=== PATIENT | female | born 1990 | race African-American/Black ===

== ENCOUNTER 2017-11-23 14:24 | Emergency (ER) | payer OTHER ==
[~2017-11-23] VITALS: Ht 160 cm; Wt 81.7 kg
[~2017-11-23 14:24] MED LIST: FLAGYL500 MG PO; NOHOMEMEDICATIONS; VITAFOL-OB+DHA1 EACH PO
[2017-11-23 15:06] LABS: URINE BILIRUBIN NEGATIVE (Negative); URINE BLOOD NEGATIVE (Negative); URINE CLARITY CLEAR; URINE COLOR YELLOW; URINE GLUCOSE-RANDOM* NEGATIVE (Negative); URINE KETONES TRACE (Negative); URINE LEUKOCYTES NEGATIVE (Negative); URINE NITRITE NEGATIVE (Negative); URINE PROTEIN (DIPSTICK) NEGATIVE (Negative); URINE SPECIFIC GRAVITY 1.015 (1.005-1.035)
[2017-11-23 15:20] LABS: ABSOLUTE NEUTROPHILS 2.8 thou/uL (1.4-8.2); BASOPHILS 0.7 % (0.0-2.0); EOSINOPHILS 1.7 % (0.0-3.0); HEMATOCRIT 37.7 % (37.0-47.0); HEMOGLOBIN 13.6 gm/dL (12.0-15.0); LYMPHOCYTES 45.8 % (24.0-44.0); MCH 29.6 pg (26.0-34.0); MCHC 36.1 g/dL (28.0-37.0); MONOCYTES 7.6 % (1.0-8.0); PLATELET COUNT 284 thou/uL (150-400); POLYS 44.2 % (36.0-66.0); RBC 4.59 mil/uL (4.20-5.00); WBC 6.4 thou/uL (4.0-11.0)
[2017-11-23 15:31] LABS: CREATININE 0.8 mg/dL (0.6-1.0); POTASSIUM 3.6 mmol/L (3.5-5.1)
[2017-11-23 15:37] LABS: ALBUMIN 3.6 g/dL (3.4-5.0); TOTAL BILIRUBIN 0.3 mg/dL (<0.1-1.0); TOTAL PROTEIN 7.3 g/dL (6.4-8.2)
== END 2017-11-23 17:40 | disposition home or self-care (01) ==
LOC: ER 14:24
PROVIDERS: Emergency Medicine
DX: O26.891 Other specified pregnancy related conditions, first trimester (principal); Z3A.00 Weeks of gestation of pregnancy not specified; R10.2 Pelvic and perineal pain

== ENCOUNTER 2017-12-03 12:25 | Emergency (ER) | payer OTHER ==
[~2017-12-03] VITALS: Ht 160 cm; Wt 81.7 kg
[2017-12-03] MEDS ORDERED: PRENATAL COMPL1 EACH PO (12:37)
[2017-12-03 13:06] LABS: ABSOLUTE NEUTROPHILS 2.7 thou/uL (1.4-8.2); BASOPHILS 0.9 % (0.0-2.0); EOSINOPHILS 1.5 % (0.0-3.0); HEMATOCRIT 37.7 % (37.0-47.0); HEMOGLOBIN 13.6 gm/dL (12.0-15.0); LYMPHOCYTES 43.5 % (24.0-44.0); MCH 29.5 pg (26.0-34.0); MONOCYTES 6.4 % (1.0-8.0); PLATELET COUNT 263 thou/uL (150-400); POLYS 47.7 % (36.0-66.0); RDW 15.6 % (10.5-14.5); WBC 5.6 thou/uL (4.0-11.0)
[2017-12-03] MEDS ORDERED: ZOFRAN ODT4 MG PO (15:08)
== END 2017-12-03 15:36 | disposition home or self-care (01) ==
LOC: ER 12:25
PROVIDERS: Nurse Practitioner
DX: O26.891 Other specified pregnancy related conditions, first trimester (principal); R11.0 Nausea; Z3A.01 Less than 8 weeks gestation of pregnancy

== ENCOUNTER 2017-12-18 16:01 | Emergency (ER) | payer OTHER ==
[~2017-12-18] VITALS: Ht 160 cm; Wt 81.7 kg
[~2017-12-18 16:01] MED LIST changes: +PRENATAL COMPL1 EACH PO; +ZOFRAN ODT4 MG PO
[2017-12-18 16:25] LABS: ABSOLUTE NEUTROPHILS 5.5 thou/uL (1.4-8.2); BASOPHILS 0.6 % (0.0-2.0); EOSINOPHILS 0.3 % (0.0-3.0); HEMATOCRIT 39.3 % (37.0-47.0); HEMOGLOBIN 13.8 gm/dL (12.0-15.0); LYMPHOCYTES 32.8 % (24.0-44.0); MCH 29.4 pg (26.0-34.0); MCHC 35.2 g/dL (28.0-37.0); MCV 83.6 fL (80.0-100.0); MONOCYTES 4.8 % (1.0-8.0); PLATELET COUNT 302 thou/uL (150-400); POLYS 61.5 % (36.0-66.0); RBC 4.71 mil/uL (4.20-5.00); RDW 15.9 % (10.5-14.5); WBC 8.9 thou/uL (4.0-11.0)
[2017-12-18 16:33] LABS: ANION GAP 8 mmol/L (7-16); BUN 8 mg/dL (7-18); CALCIUM 9.2 mg/dL (8.5-10.1); CHLORIDE 103 mmol/L (98-107); CO2 27 mmol/L (21-32); GLUCOSE 125 mg/dL (74-106); POTASSIUM 3.1 mmol/L (3.5-5.1); SODIUM 138 mmol/L (136-145)
[2017-12-18 16:39] LABS: ALBUMIN 3.7 g/dL (3.4-5.0); DIRECT BILIRUBIN < 0.1 mg/dL (<0.1-0.3); SGOT 16 U/L (15-37); SGPT 20 U/L (30-65); TOTAL BILIRUBIN 0.3 mg/dL (<0.1-1.0); TOTAL PROTEIN 7.3 g/dL (6.4-8.2)
[2017-12-18 16:47] LABS: URINE BILIRUBIN NEGATIVE (Negative); URINE BLOOD 2+ (Negative); URINE CLARITY CLEAR; URINE COLOR YELLOW; URINE GLUCOSE-RANDOM* NEGATIVE (Negative); URINE KETONES TRACE (Negative); URINE LEUKOCYTES NEGATIVE (Negative); URINE NITRITE NEGATIVE (Negative); URINE PROTEIN (DIPSTICK) NEGATIVE (Negative); URINE SPECIFIC GRAVITY 1.015 (1.005-1.035); URINE UROBILINOGEN 0.2 E.U./dl (0.2-1.0)
[2017-12-18 16:51] LABS: SQUAMOUS 4-10 Moderate /LPF (0-3); URINE RBC 0-2 Rare /HPF (0-2); URINE WBC 0-5 Rare /HPF (0-5)
[2017-12-18 16:52] LABS: CASTS None Seen /LPF (None Seen); CRYSTALS None Seen /LPF (None Seen)
== END 2017-12-18 18:10 | disposition home or self-care (01) ==
LOC: ER 16:01
PROVIDERS: Emergency Medicine
DX: O20.0 Threatened abortion (principal); N76.0 Acute vaginitis; E87.6 Hypokalemia; Z3A.01 Less than 8 weeks gestation of pregnancy

== ENCOUNTER 2018-02-17 07:20 | Emergency (ER) | payer OTHER ==
[~2018-02-17] VITALS: Ht 160 cm; Wt 83.9 kg
[2018-02-17 07:26] VITALS: BP 114/69
[2018-02-17 07:52] LABS: URINE BILIRUBIN NEGATIVE (Negative); URINE BLOOD NEGATIVE (Negative); URINE CLARITY CLEAR; URINE COLOR YELLOW; URINE GLUCOSE-RANDOM* NEGATIVE (Negative); URINE KETONES NEGATIVE (Negative); URINE NITRITE-REFLEX NEGATIVE (Negative); URINE PROTEIN (DIPSTICK) NEGATIVE (Negative); URINE UROBILINOGEN 0.2 E.U./dl (0.2-1.0)
[2018-02-17 07:53] LABS: URINE LEUKOCYTES-REFLEX 1+ (Negative)
[2018-02-17 08:12] LABS: CASTS None Seen /LPF (None Seen); CRYSTALS None Seen /LPF (None Seen); SQUAMOUS >10 Many /LPF (0-3)
[2018-02-17 08:13] LABS: URINE RBC None Seen /HPF (0-2); URINE WBC-REFLEX 6-15 Few /HPF (0-5)
[2018-02-17] MEDS ORDERED: KEFLEX500 M1 PO (08:29)
== END 2018-02-17 08:47 | disposition home or self-care (01) ==
LOC: ER 07:20
PROVIDERS: Emergency Medicine
DX: N39.0 Urinary tract infection, site not specified (principal)

== ENCOUNTER 2019-01-28 06:44 | Emergency (ER) | payer OTHER ==
[~2019-01-28] VITALS: Ht 160 cm; Wt 81.7 kg
[~2019-01-28 06:44] MED LIST changes: +KEFLEX500 M1 PO
[2019-01-28] MEDS ORDERED: EAR WAX REMOVAL15 ML OTIC (07:02)
[2019-01-28 07:23] VITALS: BP 118/81
== END 2019-01-28 07:20 | disposition home or self-care (01) ==
LOC: ER 06:44
DX: H61.22 Impacted cerumen, left ear (principal)

== ENCOUNTER 2019-06-06 19:22 | Emergency (ER) | payer OTHER ==
[~2019-06-06] VITALS: Ht 160 cm; Wt 81.7 kg
[~2019-06-06 19:22] MED LIST changes: +EAR WAX REMOVAL15 ML OTIC
[2019-06-06 19:39] VITALS: BP 127/73
[2019-06-06] MEDS ORDERED: CIPRODEX OTIC7.5 ML OTIC (21:46)
[2019-06-06] MEDS ORDERED: CLARITIN-D 121 EAC1 PO (21:46)
== END 2019-06-06 21:45 | disposition home or self-care (01) ==
LOC: ER 19:22
DX: H61.22 Impacted cerumen, left ear (principal); H60.92 Unspecified otitis externa, left ear

== ENCOUNTER 2020-08-07 17:41 | Emergency (ER) | payer OTHER ==
[~2020-08-07 17:41] MED LIST changes: +CIPRODEX OTIC7.5 ML OTIC; +CLARITIN-D 121 EAC1 PO
== END 2020-08-07 18:15 | disposition left against medical advice (07) ==
LOC: ER 17:41
DX: N39.0 Urinary tract infection, site not specified (principal); Z53.21 Procedure and treatment not carried out due to patient leaving prior to being seen by health care provider

== ENCOUNTER 2021-06-17 08:11 | Emergency (ER) | payer OTHER ==
[~2021-06-17] VITALS: Ht 160 cm; Wt 86.2 kg
[2021-06-17 08:31] LABS: URINE BLOOD 3+ (Negative); URINE CLARITY CLOUDY; URINE COLOR YELLOW; URINE GLUCOSE-RANDOM* NEGATIVE (Negative); URINE KETONES NEGATIVE (Negative); URINE LEUKOCYTES-REFLEX NEGATIVE (Negative); URINE NITRITE-REFLEX NEGATIVE (Negative); URINE PROTEIN (DIPSTICK) 1+ (Negative); URINE SPECIFIC GRAVITY 1.015 (1.005-1.035); URINE UROBILINOGEN 0.2 E.U./dl (0.2-1.0)
[2021-06-17 08:35] LABS: ICTOTEST (BILI CONFIRMATORY) Negative (Negative); URINE BILIRUBIN NEGATIVE (Negative)
[2021-06-17 08:36] LABS: BACTERIA-REFLEX 1-9 Few /HPF (None Seen); CASTS None Seen /LPF (None Seen); CRYSTALS None Seen /LPF (None Seen); SQUAMOUS 0-3 Few /LPF (0-3); URINE WBC-REFLEX None Seen /HPF (0-5)
[2021-06-17 08:45] LABS: ABSOLUTE NEUTROPHILS 2.8 thou/uL (1.4-8.2); HEMOGLOBIN 15.1 gm/dL (12.0-15.0); RDW 13.1 % (10.5-14.5); WBC 5.2 thou/uL (4.0-11.0)
[2021-06-17 08:47] LABS: BASOPHILS 1.1 % (0.0-2.0); EOSINOPHILS 2.9 % (0.0-3.0); HEMATOCRIT 42.5 % (37.0-47.0); LYMPHOCYTES 34.8 % (24.0-44.0); MCH 30.9 pg (26.0-34.0); MCHC 35.5 g/dL (28.0-37.0); MCV 87.1 fL (80.0-100.0); MONOCYTES 6.7 % (1.0-8.0); PLATELET COUNT 336 thou/uL (150-400); POLYS 54.5 % (36.0-66.0); RBC 4.88 mil/uL (4.20-5.00)
[2021-06-17 08:55] LABS: CALCIUM 9.3 mg/dL (8.5-10.1); CREATININE 0.9 mg/dL (0.6-1.0); POTASSIUM 3.9 mmol/L (3.5-5.1)
[2021-06-17 09:02] LABS: ALBUMIN 3.9 g/dL (3.4-5.0); TOTAL BILIRUBIN 0.5 mg/dL (0.2-1.0); TOTAL PROTEIN 7.8 g/dL (6.4-8.2)
[2021-06-17] MEDS ORDERED: PROVERA10 MG PO (11:07)
[2021-06-17 11:10] VITALS: BP 106/60
== END 2021-06-17 11:10 | disposition home or self-care (01) ==
LOC: ER 08:11
PROVIDERS: Emergency Medicine
DX: N93.8 Other specified abnormal uterine and vaginal bleeding (principal)

== ENCOUNTER 2021-07-11 13:22 | Inpatient (IN) | payer OTHER ==
[~2021-07-11] VITALS: Ht 160 cm; Wt 92.5 kg
[~2021-07-11 13:22] MED LIST changes: +PROVERA10 MG PO
[2021-07-11 13:24] VITALS: BP 135/77
[2021-07-11 13:55] LABS: ABSOLUTE NEUTROPHILS 2.4 thou/uL (1.4-8.2); BASOPHILS 0.5 % (0.0-2.0); HEMATOCRIT 40.4 % (37.0-47.0); HEMOGLOBIN 14.4 gm/dL (12.0-15.0); LYMPHOCYTES 23.5 % (24.0-44.0); MCH 30.8 pg (26.0-34.0); MCHC 35.7 g/dL (28.0-37.0); MCV 86.2 fL (80.0-100.0); MONOCYTES 7.8 % (1.0-8.0); PLATELET COUNT 180 thou/uL (150-400); POLYS 68.2 % (36.0-66.0); RBC 4.69 mil/uL (4.20-5.00); RDW 12.6 % (10.5-14.5); WBC 3.6 thou/uL (4.0-11.0)
[2021-07-11 14:12] LABS: CALCIUM 8.2 mg/dL (8.5-10.1); POTASSIUM 3.3 mmol/L (3.5-5.1)
[2021-07-11 14:19] LABS: ALBUMIN 3.3 g/dL (3.4-5.0); TOTAL BILIRUBIN 0.5 mg/dL (0.2-1.0); TOTAL PROTEIN 7.8 g/dL (6.4-8.2)
[2021-07-11 15:43] VITALS: BP 110/70
--- NOTE | 2021-07-11 15:48 | NUR ---
ATTEMPTED TO CALL REPORT
[2021-07-11 16:05] VITALS: BP 114/66
[2021-07-11 16:32] VITALS: BP 109/72
[2021-07-11 17:00] VITALS: BP 118/70
--- NOTE | 2021-07-11 19:28 | NUR ---
PT ADIMITTED FROM ER FOR COVID PNEUMONIA ABOUT 1700PM, PT IS A&OX4, PT IS ON O2 2L/MIN/NC, PT HAS IV ABX AT ER, PT'S SOB AND FEVER HAVE IMPROVED, PT HAS EATING HER DINNER, PT'S ADMITTED ASSESSMENT HAS DONE, ID HAS SEEING THIS PT, RN HAS REPORTED TO NEXT SHIFT TO FINISH NEW ORDER. PT DENIES PAIN BY THIS TIME.
[2021-07-11 19:55] VITALS: BP 117/73
[2021-07-12 04:25] VITALS: BP 94/61
[2021-07-12 04:56] LABS: INR 0.95; PROTIME 10.4 Seconds (10.5-12.1)
[2021-07-12 05:12] LABS: DIRECT BILIRUBIN < 0.1 mg/dL (<0.1-0.2); PHOSPHORUS 3.7 mg/dL (2.6-4.7)
--- NOTE | 2021-07-12 05:13 | NUR ---
C/O chest tightness and discomfort when coughing.O2 at 1L/NC with O2 sat in the upper 90's. [employer] notified and order placed. Toradol given for pain and guifenessin given for cough with good relief. She stated she slept well during the night and she is not coughing as much. Denies any pain this am.Cont. on enhanced precaution, afebrile.
[2021-07-12 05:14] LABS: ALBUMIN 2.9 g/dL (3.4-5.0); CALCIUM 7.4 mg/dL (8.5-10.1); CREATININE 0.8 mg/dL (0.6-1.0); POTASSIUM 4.1 mmol/L (3.5-5.1); TOTAL BILIRUBIN 0.3 mg/dL (0.2-1.0); TOTAL PROTEIN 6.7 g/dL (6.4-8.2)
[2021-07-12 05:33] LABS: ABSOLUTE NEUTROPHILS 1.3 thou/uL (1.4-8.2); BASOPHILS 0.4 % (0.0-2.0); HEMATOCRIT 37.4 % (37.0-47.0); HEMOGLOBIN 13.5 gm/dL (12.0-15.0); LYMPHOCYTES 39.6 % (24.0-44.0); MCH 31.2 pg (26.0-34.0); MCHC 36.2 g/dL (28.0-37.0); MCV 86.2 fL (80.0-100.0); MONOCYTES 9.4 % (1.0-8.0); PLATELET COUNT 185 thou/uL (150-400); POLYS 50.6 % (36.0-66.0); RBC 4.34 mil/uL (4.20-5.00); RDW 13.1 % (10.5-14.5); WBC 2.6 thou/uL (4.0-11.0)
[2021-07-12 08:08] VITALS: BP 11/73
[2021-07-12 11:10] VITALS: BP 108/72
[2021-07-12 15:10] VITALS: BP 110/70
--- NOTE | 2021-07-12 16:28 | NUR ---
RN ASSUMED PT'S CARE AT 0700AM, PT IS A&OX4, PT IS ON O2 2L/MIN/NC, PT'S O2SAT AND VS ARE STABLE, PT'S FEVER AND SOB HAVE IMPROVED, PT CAN GET UP TO BSC WITHOUT ASSIST, BUT PT STILL HAS POOR EATING , PT DENIES PAIN BY THIS TIME.
[2021-07-12 19:28] VITALS: BP 102/67
[2021-07-13 02:50] VITALS: BP 109/69
[2021-07-13 04:24] LABS: ALBUMIN 2.9 g/dL (3.4-5.0); ANION GAP 8 mmol/L (7-16); BUN 9 mg/dL (7-18); CHLORIDE 103 mmol/L (98-107); CO2 29 mmol/L (21-32); CREATININE 0.9 mg/dL (0.6-1.0); DIRECT BILIRUBIN < 0.1 mg/dL (<0.1-0.2); GLUCOSE 96 mg/dL (74-106); PHOSPHORUS 2.6 mg/dL (2.6-4.7); POTASSIUM 4.1 mmol/L (3.5-5.1); SGOT 37 U/L (15-37); SGPT 30 U/L (14-59); SODIUM 140 mmol/L (136-145); TOTAL BILIRUBIN 0.3 mg/dL (0.2-1.0); TOTAL PROTEIN 7.1 g/dL (6.4-8.2)
--- NOTE | 2021-07-13 06:32 | NUR ---
PT MAKING SLOW PROGRESS TOWARDS GOALS. ON O2 AT 2L PER NC OVERNIGHT. AWOKE THIS AM C/O TROUBLE CATCHING HER BREATH. O2 SAT 94-95% ON 2L, INCREASED TO 4L FOR COMFORT. TEMP 101.1 ORALLY. NOTED WET BUT NONPRODCTIVE COUGH. PT REPORTS SHE WAS COUGHING WHEN WAKING UP. COUGHY SYRUP, TYLENOL AND TORADOL GIVEN FOR COMPLAINTS OF CHEST/RIB DISCOMFORT WHEN COUGHING. PT REPORTING IMPROVEMENT IN SX EARLY THIS AM.
[2021-07-13 07:58] VITALS: BP 106/69
[2021-07-13 08:26] LABS: ABSOLUTE NEUTROPHILS 3.3 thou/uL (1.4-8.2); BASOPHILS 0.3 % (0.0-2.0); HEMATOCRIT 38.7 % (37.0-47.0); HEMOGLOBIN 13.8 gm/dL (12.0-15.0); LYMPHOCYTES 31.5 % (24.0-44.0); MCH 31.4 pg (26.0-34.0); MCHC 35.7 g/dL (28.0-37.0); MCV 87.8 fL (80.0-100.0); MONOCYTES 3.8 % (1.0-8.0); PLATELET COUNT 215 thou/uL (150-400); POLYS 64.4 % (36.0-66.0); RBC 4.41 mil/uL (4.20-5.00); WBC 5.1 thou/uL (4.0-11.0)
[2021-07-13 15:11] LABS: URINE BILIRUBIN NEGATIVE (Negative); URINE BLOOD 3+ (Negative); URINE CLARITY CLEAR; URINE COLOR YELLOW; URINE GLUCOSE-RANDOM* NEGATIVE (Negative); URINE KETONES NEGATIVE (Negative); URINE LEUKOCYTES-REFLEX NEGATIVE (Negative); URINE NITRITE-REFLEX NEGATIVE (Negative); URINE PROTEIN (DIPSTICK) NEGATIVE (Negative); URINE SPECIFIC GRAVITY <= 1.005 (1.005-1.035); URINE UROBILINOGEN 0.2 E.U./dl (0.2-1.0)
[2021-07-13 15:15] VITALS: BP 105/68
[2021-07-13 15:22] LABS: CASTS None Seen /LPF (None Seen); SQUAMOUS 0-3 Few /LPF (0-3); URINE RBC 1-2 Rare /HPF (NONE SEEN); URINE WBC-REFLEX 0-5 Rare /HPF (0-5)
[2021-07-13 15:23] LABS: BACTERIA-REFLEX None Seen /HPF (None Seen); CRYSTALS None Seen /LPF (None Seen)
--- NOTE | 2021-07-13 18:35 | NUR ---
RN ASSUMED PT'S CARE AT 0700AM, PT IS A&OX4, PT IS ON O2 4L/NC/MIN, PT'S VS AND O2SAT ARE STABLE AT DAY SHIFT, PT GETS UP TO BSC WITHOUT ASSIST, BUT PT STILL HAS COUGHING , PT DENIES PAIN AND N/V AT DYA SHIFT.
[2021-07-13 20:33] VITALS: BP 109/64
[2021-07-14 00:04] VITALS: BP 112/60
[2021-07-14 04:00] VITALS: BP 101/58
[2021-07-14 05:26] LABS: ALBUMIN 2.7 g/dL (3.4-5.0); ANION GAP 8 mmol/L (7-16); BUN 7 mg/dL (7-18); CALCIUM 7.7 mg/dL (8.5-10.1); CHLORIDE 103 mmol/L (98-107); CO2 27 mmol/L (21-32); CREATININE 0.7 mg/dL (0.6-1.0); DIRECT BILIRUBIN < 0.1 mg/dL (<0.1-0.2); GLUCOSE 86 mg/dL (74-106); PHOSPHORUS 2.8 mg/dL (2.5-4.9); POTASSIUM 3.8 mmol/L (3.5-5.1); SGOT 30 U/L (15-37); SGPT 23 U/L (30-65); SODIUM 138 mmol/L (136-145); TOTAL BILIRUBIN 0.6 mg/dL (0.2-1.0); TOTAL PROTEIN 6.7 g/dL (6.4-8.2)
--- NOTE | 2021-07-14 06:44 | NUR ---
Patient making slow progress towards outcome goals. Low grade temperature 99 orally. Up adlib without difficulty. Denies pain. Oxygenation optimal with 3L/NC. Plenty of fluid intake and output. Blood tinged as patient is currently on her menstrual period.
[2021-07-14 09:06] LABS: HIV ANTIBODY Non Reactive (Non Reactive)
[2021-07-14 09:33] VITALS: BP 100/66
--- NOTE | 2021-07-14 15:56 | NUR ---
INITIAL ASSESSMENT: SW reviewed chart and spoke with nursing and attending physician. Pt was admitted from home due to COVID. Pt placed in Enhanced Isolation. Pt has not received a COVID vaccination. Pt has been febrile and is on 3L of O2. Pt is on IV abx and IV steroids. Pt has been started on Remdesivir. Discharge home is anticipated in 1-2 days. JAYLYN has placed several calls to pt's room. No answer. SW place call to pt's cell phone: [phone]. Voice message left. Per chart, pt is alert/orientated x 4. Pt lives at home and recently traveled to [place]. Pt does not have health insurance. [facility] to screen pt for Medicaid and/or financial assistance. SW to follow up with pt to discuss discharge planning.
[2021-07-14 16:15] VITALS: BP 103/63
--- NOTE | 2021-07-14 16:19 | NUR ---
RN ASSUMED PT'S CARE AT 0700AM, PT IS A&OX4, PT IS OFF O2 AND SHE IS ON ROOM AIR, PT 'S SOB AND COUGHING HAVE IMPROVED, PT IS CONTINUING IV ABX AND TREAT COVID MEDICATIONS, PT GETS UP TO BSC WITHOUT ASSIST, PT DENIES PAIN BY THIS TIME.
[2021-07-14 19:40] VITALS: BP 105/68
[2021-07-15 04:00] VITALS: BP 103/59
--- NOTE | 2021-07-15 05:51 | NUR ---
Pt. requested pain med for rib cage pain due to coughing. Tylenol given with good relief. Tolerating room air well with O2 sat in the low 90's. Encouraged use of IS and she slept in prone position as much as she can. Cont. on enhanced precaution , afebrile. making some progress towards care plan goals.
[2021-07-15 06:02] LABS: ALBUMIN 2.7 g/dL (3.4-5.0); CALCIUM 8.1 mg/dL (8.5-10.1); CREATININE 0.7 mg/dL (0.6-1.0); DIRECT BILIRUBIN 0.1 mg/dL (<0.1-0.2); PHOSPHORUS 3.2 mg/dL (2.5-4.9); POTASSIUM 4.1 mmol/L (3.5-5.1); TOTAL BILIRUBIN 0.4 mg/dL (0.2-1.0); TOTAL PROTEIN 6.9 g/dL (6.4-8.2)
[2021-07-15 07:38] VITALS: BP 99/64
[2021-07-15] MEDS ORDERED: VITAMIN D325 MC2 PO (10:52)
[2021-07-15] MEDS ORDERED: LOPERAMIDE 2 MG2 M1 PO (10:52)
[2021-07-15] MEDS ORDERED: DECADRON6 MG PO (10:52)
[2021-07-15] MEDS ORDERED: ACEROLA C500 MG PO (10:52)
[2021-07-15] MEDS ORDERED: ZINC SULFATE50 MG PO (10:52)
[2021-07-15] MEDS ORDERED: GUAIFENESIN DM S5 ML PO (10:52)
--- NOTE | 2021-07-15 14:14 | NUR ---
JAYLYN reviewed chart and spoke with nursing and attending physician. Pt remains in Enhanced Isolation due to COVID. Pt is afebrile. Pt is on IV steroids and will complete Remdesivir today. Rest/exercise oximetry completed earlier today. Pt dropped to 82% on room air and needed 2L with activity. JAYLYN discussed with attending physician. Pt to have repeat rest/exercise oximetry tomorrow morning. JAYLYN spoke with pt via phone. Introduced role of SW. Pt is alert/orientated x 4. Pt report she lives at home. Prior to admission, pt was independent with ADLs. No use of DME. No hx of HH or post-acute placement. Pt does not currently have a PCP or health insurance. JAYLYN informed pt that [facility] will be following up to assist with [place]-Medicaid application and/or financial assistance. Pt's meds to be vouched by Case Mgmt Dept at [facility]. JAYLYN faxed face sheet and spoke with Penny in the pharmacy. New prescriptions to be sent to the pharmacy. Pt will have transportation home. Pt is aware that discharge is planned for tomorrow. [facility] Health Resource Guide/Safety Net clinic list to be provided to pt to establish primary care. JAYLYN is following to assist as needed with discharge planning.
[2021-07-15 15:53] VITALS: BP 96/62
--- NOTE | 2021-07-15 16:33 | NUR ---
RN ASSUMED PT'S CARE AT 0700AM, PT IS A&OX4, PT IS ON O2 2L/MIN/NC, PT'S VS ARE STABLE, PT'S SOB ,DIARRHEA AND N/V HAVE IMPROVED, BUT PT STILL IS POOR EATING , RN HAS NOTIFIED PT'S FAMILY AND DR ABOUT PT'S POOR EAT AT MEAL TIME, PT MAY DC TO SNF TODAY OR TOMORROW.
--- NOTE | 2021-07-15 16:48 | NUR ---
RN ASSUMED PT'S CARE AT 0700AM, PT IS A&OX4, PT RESTARTS O2 2L/MIN/NC TODAY BY RT CHECK, PT IS CONTINUING TREAT COVID MEDICATIONS, PT'S VS ARE STABLE, BUT PT STILL HAS SOB WITH ACTIVITIES, PT WILL RECHECK O2SAT TOMORROW IF PT NEED O2 AT HOME, PT MAY DC TO HOME TOMORROW.PT CAN GET UP TO BSC WITHOUT ASSIST.
[2021-07-15 19:30] VITALS: BP 93/56
[2021-07-16 02:17] VITALS: BP 93/57
[2021-07-16 03:10] LABS: ALBUMIN 2.7 g/dL (3.4-5.0); ANION GAP 6 mmol/L (7-16); BUN 12 mg/dL (7-18); CALCIUM 8.2 mg/dL (8.5-10.1); CHLORIDE 105 mmol/L (98-107); CO2 28 mmol/L (21-32); CREATININE 0.7 mg/dL (0.6-1.0); DIRECT BILIRUBIN < 0.1 mg/dL (<0.1-0.2); GLUCOSE 99 mg/dL (74-106); PHOSPHORUS 3.3 mg/dL (2.6-4.7); POTASSIUM 4.2 mmol/L (3.5-5.1); SGOT 26 U/L (15-37); SGPT 24 U/L (14-59); SODIUM 139 mmol/L (136-145); TOTAL BILIRUBIN 0.4 mg/dL (0.2-1.0); TOTAL PROTEIN 6.8 g/dL (6.4-8.2)
--- NOTE | 2021-07-16 06:39 | NUR ---
Pt. slept well during the night. Maintaining O2 sat in the upper 90's on 2L/NC. Denies any pain. Hoping she'll go home today.
[2021-07-16 12:53] VITALS: BP 93/57
--- NOTE | 2021-07-16 12:56 | NUR ---
DISCHARGE NOTE: JAYLYN reviewed chart and spoke with nursing and attending physician. Pt remains in Enhanced Isolation due to COVID. Pt is afebrile and medically stable for discharge home today. SW took new prescriptions to [facility] to be filled. Pharmacy to contact pt's nurse when meds are ready to be picked up. Repeat rest/exercise oximetry completed. Pt requires 3L of O2 with activity. JAYLYN updated attending physician. Pt is wanting to discharge home today and is agreeable with home O2. JAYLYN faxed rest/exercise oximetry to [facility]. Notified [facility] liaison, who delivered a portable O2 tank to the hospital earlier today. Awaiting script for O2 at this time. JAYLYN placed call to pt's room. No answer. JAYLYN updated pt's nurse. JAYLYN provided [facility] Health Resource Guide, Safety Net Clinic list and prescription discount card to be given to pt with discharge ppwk. This info placed in pt's discharge summary, as well as contact info for [facility] (Medicaid leta) and [facility] for home O2. Pt's family to provide transportation home when discharged. No additional SW needs identified at this time, but is available to assist should needs arise.
[2021-07-16] MEDS ORDERED: OXYGEN MISCELL (13:22)
[2021-07-16 15:15] VITALS: BP 93/57
--- NOTE | 2021-07-16 16:34 | NUR ---
assumed care of patient at 1200. patient ready for discharge. rest/exercise study complete by rt. script for oxygen and home o2 set up by case management. scripts filled in outpatient pharmacy and provided to patient. patient aware of medication regimine and home o2 use. instructed to be seen if symptoms worsen. patient states she understands all discharge istructions. provided safety net clinic information from [facility]. iv discontinued. tele monitor off. paitent discharged with family/friend.
[2021-07-16] MEDS ORDERED: VENTOLIN HFA INH8 GM INH (16:35)
[2021-07-17 09:42] LABS: T-SPOT.TB Negative
== END 2021-07-16 16:33 | disposition home or self-care (01) | DRG 177 ==
LOC: ER 13:22 → EROBS 15:34 → 3W 15:50
PROVIDERS: Emergency Medicine; Specialist; ADMIT Hospitalist; ATTEND Hospitalist
PROC: XW033E5 Introduction of Remdesivir Anti-infective into Peripheral Vein, Percutaneous Approach, New Technology Group 5 (ICD-10-PCS; 2021-07-11)
PROC: 5A0935A Assistance with Respiratory Ventilation, Less than 24 Consecutive Hours, High Flow/Velocity Cannula (ICD-10-PCS; principal; 2021-07-12)
DX: U07.1 COVID-19 (principal); J12.82 Pneumonia due to coronavirus disease 2019; J96.01 Acute respiratory failure with hypoxia; Z87.440 Personal history of urinary (tract) infections
CPT/HCPCS: 10879